=== PATIENT | female | born 1955 | race Caucasian/White ===

== ENCOUNTER 2017-03-16 16:34 | Outpatient (CLI) | payer OTHER ==
--- NOTE | 2017-03-16 22:03 | MRI Report ---
EXAM: RIGHT KNEE MRI WITHOUT CONTRAST EXAM DATE: 03/16/2017 05:13 PM. CLINICAL HISTORY: Right knee instability. Rule out lateral meniscus tear. COMPARISON: None. TECHNIQUE: Multiplanar, multisequence T1-weighted and fluid-sensitive sequences of the knee without c ontrast. Other: None. FINDINGS: Cruciate ligaments: The anterior and posterior cruciate ligaments appear intact. Medial meniscus: Intact. No tear is identified. Lateral meniscus: Intact. No tear is identified. Collateral limits: The medial and fibular collateral limits appear intact. Trace amount of edema damian cent to the medial collateral ligament. Bones and articular surfaces: Slight degree of cartilage thinning and surface irregularity in the alma delia ghtbearing medial and lateral compartments. Slight degree of service cartilage irregularity at the me dial facet of the patella. No significant articular cartilage defects are seen. Marrow signal appears normal. Extensor mechanism: The patellar tendon and quadriceps insertion appear intact. IMPRESSION: 1. Slight degree of edema adjacent to the medial collateral ligament. Possible mild grade 1 sprain. 2. Minimal tricompartmental degenerative cartilage changes. [facility] MUSCULOSKELETAL RADIOLOGY SECTION Referring Provider Line: [phone] SITE ID: [id number]
== END 2017-03-16 16:35 | disposition home or self-care (01) ==
LOC: DI 16:34
PROVIDERS: ATTEND Family Medicine
DX: M17.11 Unilateral primary osteoarthritis, right knee (principal)

== ENCOUNTER 2017-04-07 14:23 | Outpatient (CLI) | payer OTHER ==
--- NOTE | 2017-04-08 09:07 | XRAY Report ---
BILATERAL HIPS: 04/07/2017 COMPARISON STUDY: None. INDICATION: Right hip pain and stiffness. TECHNIQUE: Two views of each hip and frontal pelvis. FINDINGS: There are moderate degenerative changes of the right hip. There are mild degenerative higinio nges of the left hip. Joint space narrowing is asymmetric, suggesting osteoarthritis. No acute bone findings are seen. Alignment is otherwise anatomic. IMPRESSION: OSTEOARTHRITIS OF THE HIPS, MODERATE ON THE RIGHT AND MILD ON THE LEFT. JOB #: [id number] EXT JOB #:[id number]
== END 2017-04-07 14:24 | disposition home or self-care (01) ==
LOC: DI 14:23
PROVIDERS: ATTEND Family Medicine
DX: M16.0 Bilateral primary osteoarthritis of hip (principal)
CPT/HCPCS: 73521

== ENCOUNTER 2020-03-17 18:14 | Emergency (ER) | payer OTHER ==
[2020-03-17 18:24] VITALS: BP 159/104
[2020-03-17] MEDS ORDERED: TETANUS/DIPHTHERIA/PERTUSSIS 0.5 ML SYRINGE IM ONE (18:33)
--- NOTE | 2020-03-17 18:35 | ED Physician Documentation ---
History of Present Illness - Stated complaint Stated Complaint: L HAND LAC - Chief complaint Chief Complaint: Laceration - History obtained from History obtained from: Patient - History of Present Illness Timing: Today Pain level max: 2 Pain level now: 0 - Additonal information Additional information: 65-year-old female with a puncture wound to the thenar eminence of the left hand. Not currently bleeding. Unknown last tetanus. Worse with movement, better with rest. She states she was using an X-Acto knife. 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 No active bleeding. Neurovascular intact. Full range of motion of all joints. Tested against resistance.) - Neuro Neuro: Alert and oriented X 3 Results - Vitals Vitals: Vital Signs - 24 hr 03/17/20 18:19 Temperature 37.0 C Heart Rate 68 Respiratory 20 Rate Blood Pressure 159/104 H O2 Saturation 99 Oxygen O2 Source Room air Procedures - Laceration (location) Left hand Length in cm: 1 Wound type: Linear, Into subcut fat, Clean Neurovascular status: Sensory intact, Motor intact, Vascular intact Wound Preparation: Irrigated copiously NS Skin layer closure: Dermabond Other: Patient tolerated well, No complications, Neurovascular intact, Dressing applied, Tetanus booster given Complexity: Simple PD MEDICAL DECISION MAKING - ED course Complexity details: considered differential, d/w patient ED course: Wound repaired. Tolerated well. Wound was cleansed and irrigated prior to closure with Dermabond. Tdap given. Patient is right-handed. Warnings of infection and instructions on wound care given at bedside. Also counseled on how to minimize scarring. Patient counseled regarding signs and symptoms for which I believe and urgent re-evaluation would be necessary. Patient with good understanding of and agreement to plan and is comfortable going home at this time This document was made in part using voice recognition software. While efforts are made to proofread this document, sound alike and grammatical errors may occur. Departure - Departure Disposition: 01 Home, Self Care Clinical Impression: Hand laceration Qualifiers: Encounter type: initial encounter Foreign body presence: unspecified Later ality: left Qualified Code(s): S61.412A - Laceration without foreign body of left hand, initial encounter Condition: Good Instructions: ED Laceration Hand Follow-Up: Your,doctor in 1 week [Other] Comments: Follow-up with your doctor in 1 week for a wound check. Return if you notice redness, swelling or drainage from the wound. Do not apply any antibiotic ointment as this may dissolve the glue. Discharge Date/Time: 03/17/20 18:58
== END 2020-03-17 18:58 | disposition home or self-care (01) ==
LOC: ED 18:14
DX: S61.412A Laceration without foreign body of left hand, initial encounter (principal); W26.0XXA Contact with knife, initial encounter; Y93.H3 Activity, building and construction; Z23 Encounter for immunization
CPT/HCPCS: 12001; 90471; 99282; 99283

== ENCOUNTER 2020-05-18 16:40 | Emergency (ER) | payer OTHER ==
[2020-05-18] MEDS ORDERED: oxyCODONE 5 MG TABLET PO STA (16:56)
--- NOTE | 2020-05-18 16:58 | ED Physician Documentation ---
PD HPI LOWER EXT INJURY - Stated complaint Stated Complaint: GLF/RT KNEE PX - Chief complaint Chief Complaint: Trauma Ext - History obtained from History obtained from: Patient - History of Present Illness PD HPI LOW EXT INJURY LOCATION: Right, Knee Type of injury: Fall Where injury occurred: Home Timing - onset: Today (at noon) Timing - details: Abrupt onset Pain level max: 8 Associated symptoms: Swelling Contributing factors: Prior ortho surgery (R hip THR) Review of Systems Constitutional: reports: Reviewed and negative Nose: reports: Reviewed and negative Throat: reports: Reviewed and negative PD PAST MEDICAL HISTORY - Past Medical History Cardiovascular: Murmur Respiratory: None Neuro: None Endocrine/Autoimmune: None GI: None LAUNDRY PRESSER: None : None HEENT: None Psych: Depression, Anxiety Musculoskeletal: None Derm: None - Past Surgical History Ortho: Hip replacement /LAUNDRY PRESSER: Hysterectomy HEENT: Cataracts - Present Medications Home Medications: Ambulatory Orders Medication Instructions Recorded Confirmed Citalopram Hydrobromide [Celexa] 20 mg PO DAILY 05/18/20 05/18/20 Oxycodone HCl/Acetaminophen 1 - 2 each PO Q6H PRN #14 tablet 05/18/20 [Percocet 5-325 mg Tablet] - Allergies Allergies/Adverse Reactions: Allergies Allergy/AdvReac Type Severity Reaction Status Date / Time No Known Drug Allergies Allergy Verified 05/18/20 16:49 - Social History Does the pt smoke?: No Smoking Status: Never smoker Does the pt drink ETOH?: No Does the pt have substance abuse?: No PD ED PE NORMAL - Vitals Vital signs reviewed: Yes - General General: Alert and oriented X 3, No acute distress - Back Back: No CVA TTP, No spinal TTP - Extremities Extremities: No calf tenderness / cord, Other (Large R knee effusion; Mild ant T TP. Limited ROM, syed flexion.) - Neuro Neuro: Alert and oriented X 3, Normal speech Results - Vitals Vitals: Vital Signs - 24 hr 05/18/20 05/18/20 16:46 18:20 Temperature 36.6 C 36.9 C Heart Rate 64 58 L Respiratory 16 18 Rate Blood Pressure 153/81 H 138/78 H O2 Saturation 98 98 Oxygen O2 Source Room air - Rads (name of study) 4 view x-ray of the right knee Radiology: EMP read contemporaneously (Comminuted nondisplaced patellar fracture with mild medial subluxation and moderate effusion.) PD MEDICAL DECISION MAKING - ED course ED course: 65-year-old woman after a fall directly onto her right patella with a fracture there. No clinical evidence of malfunction of the quadriceps tendon. She is placed in a knee immobilizer pending orthopedic follow-up. Departure - Departure Disposition: 01 Home, Self Care Clinical Impression: Patellar fracture Qualifiers: Encounter type: initial encounter Fracture type: closed Fracture morphology: other fracture Laterality: right Qualified Code(s): S82.091A - Other fracture of right patella, initial encounter for closed fracture Condition: Good Record reviewed to determine appropriate education?: Yes Instructions: ED Fx Patella Follow-Up: [facility] [Provider Group] Prescriptions: Oxycodone HCl/Acetaminophen [Percocet 5-325 mg Tablet] 1 - 2 each PO Q6H PRN #14 tablet PRN Reason: pain Comments: You have a fracture of your patella, it is nondisplaced. Should heal fine but she should follow-up with the orthopedic surgeons for further evaluation and treatment. Where the knee immobilizer when up and around, you do not need to wear it while bathing. Do not drink or drive while taking prescription pain medications, call the orthopedic office on Thursday for the appointment. Discharge Date/Time: 05/18/20 18:29
--- NOTE | 2020-05-18 17:36 | XRAY Report ---
PROCEDURE: Knee 4 View RT INDICATIONS: knee. Related to fall. TECHNIQUE: 4 views of the right knee(s) were acquired. COMPARISON: MRI of the right knee, 03/16/2017. FINDINGS: Bones: Comminuted nondisplaced fracture of patella. Mild medial subluxation of patella. No suspiciou s bony lesions. Soft tissues: There is moderate joint effusion. No suspicious soft tissue calcifications. IMPRESSION: 1. Comminuted, nondisplaced patellar fracture. There is mild medial subluxation of patella. 2. Moderate knee joint effusion. Reviewed by: Stefano Suarez MD on 05/18/2020 5:35 PM PST Approved by: Stefano Suarez MD on 05/18/2020 5:35 PM PST Station ID: [id number]
[2020-05-18 18:20] VITALS: BP 138/78
== END 2020-05-18 18:29 | disposition home or self-care (01) ==
LOC: ED 16:40
DX: S82.044A Nondisplaced comminuted fracture of right patella, initial encounter for closed fracture (principal); W01.0XXA Fall on same level from slipping, tripping and stumbling without subsequent striking against object, initial encounter; Y93.89 Activity, other specified; Y92.009 Unspecified place in unspecified non-institutional (private) residence as the place of occurrence of the external cause
CPT/HCPCS: 99283

== ENCOUNTER 2020-05-31 13:30 | Outpatient (CLI) | payer OTHER ==
--- NOTE | 2020-05-31 15:05 | XRAY Report ---
PROCEDURE: Knee Standing RT INDICATIONS: RIGHT PATELLA Fx, INITIAL ENCOUNTER TECHNIQUE: 4 views of the right knee, and 2 views of the left knee. COMPARISON: None. FINDINGS: Bones: No dislocations. No suspicious bony lesions. Joint spaces appear normal with weightbearing. There is a vertically oriented fracture involving the lateral aspect of the right patella, best see n on the patellar sunrise view with overlying anterior soft tissue swelling, and also on the lateral view there is a suprapatellar bursal joint effusion, and this fracture is relatively poorly seen on t he frontal projection through the patella and distal femoral condyles. Soft tissues: No knee joint effusions. No suspicious soft tissue calcification. IMPRESSION: Acute or subacute patellar fracture with joint effusion, without displaced fragments. This is located at the right patella, laterally, and a displaced patellar articular malalignment due to this fractur e is not seen along the undersurface of the lateral facet of the patellofemoral joint. Reviewed by: Real Dickson MD on 05/31/2020 3:03 PM PST Approved by: Real Dickson MD on 05/31/2020 3:03 PM PST Station ID: [id number]
== END 2020-05-31 23:59 | disposition home or self-care (01) ==
LOC: DI.N 13:30
PROVIDERS: ATTEND Orthopaedic Surgery
DX: S82.091A Other fracture of right patella, initial encounter for closed fracture (principal)

== ENCOUNTER 2021-07-18 09:44 | Outpatient (CLI) | payer MEDICARE, OTHER ==
--- NOTE | 2021-07-29 07:51 | Mammography Report ---
BILATERAL DIGITAL SCREENING MAMMOGRAM 3D/2D: 07/18/2021 CLINICAL: Routine screening. No prior exams were available for comparison. The tissue of both breasts is extremely dense, which l owers the sensitivity of mammography. No significant masses, calcifications, or other findings are seen in either breast. IMPRESSION: NEGATIVE There is no mammographic evidence of malignancy. A 1 year screening mammogram is recommended. This exam was interpreted at Station ID: [id number]. NOTE: For mammograms, a report in lay terms will be sent to the patient. Approximately 15% of breast malignancies will not be visualized mammographically. In the management of a palpable breast mass, a negative mammogram must not discourage biopsy of a clinically suspicious lesion. Electronically Signed By: Allison paulson/riri:07/26/2021 15:11:25 ACR BI-RADS Category 1: Negative [id number] PARENCHYMAL PATTERN: (VD) - The breast(s) demonstrate(s) extremely dense parenchyma, limiting the sen sitivity of mammography. BI-RADS CATEGORY: (1) - 1 RECOMMENDATION: (ANNUAL) - Recommend routine annual screening mammography. [id number] 1 year screening LATERALITY: (B)
== END 2021-07-18 09:45 | disposition home or self-care (01) ==
LOC: DI.N 09:44
PROVIDERS: ATTEND Family Medicine
DX: Z12.31 Encounter for screening mammogram for malignant neoplasm of breast (principal)

== ENCOUNTER 2022-06-27 10:27 | Outpatient (CLI) | payer MEDICARE, OTHER ==
--- NOTE | 2022-06-27 14:02 | XRAY Report ---
PROCEDURE: Hip w/Pelvis 2-3V LT INDICATIONS: PAIN IN LEFT HIP TECHNIQUE: AP pelvis with lateral view of the left hip. COMPARISON: Hip radiographs 02/11/2018 and 10/25/2018 FINDINGS: Bones: Postsurgical changes are seen from right total hip arthroplasty with hardware components in e xpected positions. A cerclage wire is noted at the proximal right femur. No acute fractures or disloc ations. Pelvic ring appears intact. No suspicious bony lesions. Severe joint space narrowing is se en at the left hip superiorly with subchondral sclerosis and subchondral cystic changes as well as ma rginal osteophyte formation. Coxa valga is noted. There is generalized osteopenia. Degenerative bower es are seen in the lumbar spine. Soft tissues: The visualized bowel gas pattern is normal. No suspicious soft tissue calcifications. IMPRESSION: 1.Severe left hip osteoarthrosis has progressed when compared to the prior exam from 10/27/2018. 2.Stable appearance of a right hip arthroplasty. Reviewed by: Warner Jain MD on 06/27/2022 2:01 PM PST Approved by: Warner Jain MD on 06/27/2022 2:01 PM PST Station ID: [id number]
--- NOTE | 2022-06-27 14:05 | XRAY Report ---
PROCEDURE: Lumbar Spine 2 View INDICATIONS: PAIN IN LEFT HIP TECHNIQUE: 2 views of the lumbar spine were acquired. COMPARISON: None. FINDINGS: Bones: 5 [id number] vertebrae are present. There is mild levoconvex curvature of the lumbar sp ine. Poor x-ray beam penetration is seen at the lower lumbar spine and sacrum. Denies osteopenia is n oted. There is mild multilevel degenerative endplate changes and facet hypertrophy. No acute vertebra l body compression fractures. No suspicious bony lesions. Soft tissues: Overlying bowel gas pattern is normal. No suspicious soft tissue calcifications. IMPRESSION: 1.Mild multilevel spondylosis. 2.Mild levoconvex curvature of the lumbar spine. Reviewed by: Warner Jain MD on 06/27/2022 2:03 PM PST Approved by: Warner Jain MD on 06/27/2022 2:03 PM PST Station ID: [id number]
== END 2022-06-27 10:28 | disposition home or self-care (01) ==
LOC: DI 10:27
PROVIDERS: ATTEND Student in an Organized Health Care Education/Training Program
DX: M47.816 Spondylosis without myelopathy or radiculopathy, lumbar region (principal); M16.12 Unilateral primary osteoarthritis, left hip; Z96.641 Presence of right artificial hip joint

== ENCOUNTER 2023-07-30 12:12 | Outpatient (CLI) | payer MEDICARE, OTHER ==
--- NOTE | 2023-07-30 15:27 | XRAY Report ---
PROCEDURE: Hip w/Pelvis 2-3V LT INDICATIONS: LEFT HIP OA TECHNIQUE: 2 views of the hip were acquired. COMPARISON: X-ray pelvis 06/27/2022, 10/25/2018 FINDINGS: Bones: No fractures or dislocations. No suspicious bony lesions. Right hip arthroplasty. Hardware is intact without evidence of hardware fracture or periprosthetic lucency to suggest loosening. Lashaun re degenerative narrowing is present within the left hip including subchondral sclerosis as well as s ubchondral cystic changes. Particular osteophytes are present. Coxa valga is present. Soft tissues: No suspicious soft tissue calcifications or masses. IMPRESSION: Severe left hip arthritic change. Stable right hip arthroplasty. Reviewed by: Astrid Ty MD on 07/30/2023 3:26 PM PST Approved by: Astrid Ty MD on 07/30/2023 3:26 PM PST Station ID: [id number]
== END 2023-07-30 12:13 | disposition home or self-care (01) ==
LOC: DI 12:12
PROVIDERS: ATTEND Family Medicine
DX: M16.12 Unilateral primary osteoarthritis, left hip (principal); Z96.641 Presence of right artificial hip joint